=== PATIENT | female | born 1990 ===

== ENCOUNTER 2021-02-27 22:31 | Outpatient (CLI) | payer SELFPAY ==
[2021-02-27 23:22] VITALS: BP 121/73
[2021-02-27] MEDS ORDERED: TERBUTALINE 1 MG/1 ML INJ SUB-Q ONE (23:44)
[2021-02-27] MEDS ORDERED: LACTATED RINGERS 1,000 ML IV ONE (23:45)
[2021-02-28] MEDS ORDERED: LACTATED RINGERS 1,000 ML IV SCH (01:15)
--- NOTE | 2021-02-28 02:05 | Ultrasound Report ---
ULTRASOUND BIOPHYSICAL PROFILE INDICATION / CLINICAL INFORMATION: bpp. well-being COMPARISON: None available. FINDINGS: BREATHING MOVEMENT = 2 GROSS BODY MOVEMENT = 2 TONE = 2 QUALITATIVE AMNIOTIC FLUID VOLUME = 2 TOTAL BIOPHYSICAL SCORE = 02/10 AMNIOTIC FLUID INDEX (cm) = 16.6 PRESENTATION: Cephalic. HEART RATE (beats per minute): 163 IMPRESSION: 1. biophysical profile = 02/10 Signer Name: Alan Nazario MD Signed: 02/28/2021 2:00 AM Workstation Name: [id number]
== END 2021-02-28 01:50 | disposition home or self-care (01) ==
LOC: TRG 22:31 → APU 22:34 → TRG 02-28 01:50
DX: Z34.92 Encounter for supervision of normal pregnancy, unspecified, second trimester (principal); Z3A.25 25 weeks gestation of pregnancy
CPT/HCPCS: 59025; 76819; J3105; J7120

== ENCOUNTER 2021-05-12 00:44 | Outpatient (CLI) | payer OTHER ==
[2021-05-12 01:23] LABS: Bacteria,Urine 1+ /HPF (Negative); Mucus,Urine FEW /HPF
[2021-05-12 01:31] VITALS: BP 114/70
[2021-05-12 01:34] LABS: Bilirubin,Urine Negative (Negative); Color,Urine Yellow (Yellow)
[2021-05-12] MEDS ORDERED: LACTATED RINGERS 1,000 ML IV ONE (01:46)
[2021-05-12] MEDS ORDERED: LIDOCAINE-MPF (1%) 10 MG/1 ML VIAL 5 ML INFILTRATI ONE (01:49)
== END 2021-05-12 02:25 | disposition home or self-care (01) ==
LOC: TRG 00:44 → APU 00:46 → TRG 02:25
PROVIDERS: ATTEND Obstetrics & Gynecology
DX: Z34.93 Encounter for supervision of normal pregnancy, unspecified, third trimester (principal); Z3A.36 36 weeks gestation of pregnancy
CPT/HCPCS: 36415; 81001; 84112; 87086; J0696; J7120

== ENCOUNTER 2021-05-27 15:58 | Inpatient (IN) | payer SELFPAY ==
[2021-05-27] MEDS ORDERED: NALOXONE 0.4 MG/1 ML INJ IV PRN (17:03)
[2021-05-27] MEDS ORDERED: ONDANSETRON 4 MG/2 ML INJ IV PRN (17:03)
[2021-05-27] MEDS ORDERED: LOPERAMIDE 2 MG CAP PO PRN (17:03)
[2021-05-27] MEDS ORDERED: OXYTOCIN 10 UNIT/1 ML INJ IM PRN (17:03)
[2021-05-27] MEDS ORDERED: AMPICILLIN/NS 2 GM/100 ML 2 GM/100 ML BAG IV ONE (17:03)
[2021-05-27] MEDS ORDERED: CARBOPROST TROMETHAMINE 250 MCG/1 ML INJ IM PRN (17:03)
[2021-05-27] MEDS ORDERED: METHYLERGONOVINE MALEATE 0.2 MG/ML VIAL IM PRN (17:03)
[2021-05-27] MEDS ORDERED: MINERAL OIL 30 ML ORAL LIQD PO PRN (17:03)
[2021-05-27] MEDS ORDERED: ACETAMINOPHEN 325 MG TAB PO PRN (17:03)
[2021-05-27] MEDS ORDERED: BUTORPHANOL 2 MG/1 ML INJ IV PRN (17:03)
[2021-05-27] MEDS ORDERED: ePHEDrine SULFATE 50 MG/1 ML INJ IV PRN ×2 (17:03→20:46)
[2021-05-27] MEDS ORDERED: TERBUTALINE 1 MG/1 ML INJ SUB-Q PRN (17:03)
[2021-05-27] MEDS ORDERED: miSOPROStol 200 MCG TAB PR PRN (17:03)
[2021-05-27] MEDS ORDERED: LIDOCAINE (2%) 20 MG/1 ML VIAL 20 ML MDV INFILTRATI ONE (17:03)
--- NOTE | 2021-05-27 17:16 | History and Physical Report ---
History of Present Illness Date of examination: 05/27/21 Date of admission: 05/27/2021 Chief complaint: [place] [facility] [place] due to Oligohydrmnios History of present illness: Early entry to care, taking Humlin N and Humln R insulin, Metformin added during course, co-managed with [facility]. Past History Past Medical History: diabetes Past Surgical History: no surgical history Family/Genetic History: diabetes Social history: no significant social history - Obstetrical History Expected Date of Delivery: 06/13/21 Actual Gestation: 37 Week(s) 4 Day(s) : 3 Para: 1 Number of Pregnancies: 1 Spontaneous Abortions: 1 Number of Living Children: 1 #1 Infant Gender: Female year: Birthweight: 3.062 kg Method of Delivery: Vaginal Gestational age at delivery: 33 Complications: other (induction for IUGR) Medications and Allergies Allergies Allergy/AdvReac Type Severity Reaction Status Date / Time No Known Allergies Allergy Unverified 05/05/16 08:08 Home Medications Medication Instructions Recorded Confirmed Last Taken Type HYDROcodone/APAP 5-325 [[place] 1 each PO Q6HR PRN #7 tablet 05/05/16 Unknown Rx 5/325] Active Meds: Active Medications Acetaminophen (Acetaminophen 325 Mg Tab) 650 mg PO Q4H PRN PRN Reason: Pain, Mild (1-3) Butorphanol Tartrate (Butorphanol 2 Mg/1 Ml Inj) 2 mg IV Q2H PRN PRN Reason: Pain , Severe (7-10) Carboprost Tromethamine (Carboprost Tromethamine 250 Mcg/1 Ml Inj) 250 mcg IM ONCE PRN PRN Reason: Uterine Bleeding Ephedrine Sulfate (Ephedrine Sulfate 50 Mg/1 Ml Inj) 10 mg IV Q2M PRN PRN Reason: Hypotension Oxytocin/Sodium Chloride (Pitocin/Ns 30 Unit/500ml) 30 units in 500 mls @ 2 mls/hr IV TITR MARIANNA; Protocol Lactated Ringer's (Lactated Ringers) 1,000 mls @ 125 mls/hr IV DIRECT MARIANNA Oxytocin/Sodium Chloride (Pitocin/Ns 30 Unit/500ml) 30 units in 500 mls @ 40 mls/hr IV TITR MARIANNA; Protocol Ampicillin Sodium (Ampicillin/Ns 1 Gm/50 Ml) 1 gm in 50 mls @ 100 mls/hr IV Q4H MARIANNA; Protocol Ampicillin Sodium (Ampicillin/Ns 2 Gm/100 Ml) 2 gm in 100 mls @ 100 mls/hr IV ONCE ONE; Protocol Stop: 05/27/21 18:02 Lidocaine (Lidocaine (2%) 20 Mg/1 Ml Vial 20 Ml Mdv) 20 ml INFILTRATI ONCE ONE Stop: 05/27/21 17:04 Loperamide HCl (Loperamide 2 Mg Cap) 2 mg PO ONCE PRN PRN Reason: give with Hemabate Methylergonovine Maleate (Methylergonovine Maleate 0.2 Mg/Ml Vial) 0.2 mg IM ONCE PRN PRN Reason: Uterine Bleeding Mineral Oil (Mineral Oil 30 Ml Oral Liqd) 30 ml PO QHS PRN PRN Reason: Constipation Misoprostol (Misoprostol 200 Mcg Tab) 800 mcg OR ONCE PRN PRN Reason: Uterine Bleeding Naloxone HCl (Naloxone 0.4 Mg/1 Ml Inj) 0.1 mg IV Q2MIN PRN PRN Reason: Res Rate </= 8 or 02 SAT < 92% Ondansetron HCl (Ondansetron 4 Mg/2 Ml Inj) 4 mg IV Q8H PRN PRN Reason: Nausea And Vomiting Oxytocin (Oxytocin 10 Unit/1 Ml Inj) 10 unit IM ONCE PRN PRN Reason: Uterine Bleeding Terbutaline Sulfate (Terbutaline 1 Mg/1 Ml Inj) 0.25 mg SUB-Q ONCE PRN PRN Reason: Hyperstimulation/Hypertonicity Review of Systems All systems: negative - Vital Signs Vital signs: Vital Signs Pulse BP 73 123/67 05/27/21 16:52 05/27/21 16:52 Temp Pulse Resp BP Pulse Ox 69 123/67 97 05/27/21 17:10 05/27/21 16:52 05/27/21 17:10 - Physical Exam Breasts: Positive: normal Cardiovascular: Regular rate Lungs: Positive: Clear to auscultation, Normal air movement Abdomen: Positive: normal appearance, soft, normal bowel sounds Genitourinary (Female): Positive: normal external genitalia, normal perenium Vagina: Positive: normal moisture Uterus: Positive: enlarged Anus/Rectum: Positive: normal perianal skin - Obstetrical FHR: category 1 Uterine Contraction Monitor Mode: External Cervical Dilatation: 1 Cervical Effacement Percentage: 60 station: -3 Uterine Contraction Pattern: Absent Uterine Tone Measurement Phase: Resting Results All other labs normal. Assessment and Plan A: IUP @ 37 4/7 Weeks Category I Tracing PreGestational Diabetes Maternal Obesity Oligohydramnios GBS Unknown P: Admit to L&D Per Routine Orders Accucheck q 2 hours Insulin Sliding Scale GBS Prophylaxis Cook's Cervical Ripening Balloon Low Dose Pitocin Dr. Ballesteros Consulted
[2021-05-27] MEDS ORDERED: OXYTOCIN DRIP 30 UNITS/500 ML BAG IV SCH ×2 (18:00)
[2021-05-27] MEDS: LACTATED RINGERS 1,000 ML IV SCH ×3 (18:00→21:59)
[2021-05-27 18:34] LABS: Hematocrit 32.8 % (30.3-42.9); Hemoglobin 10.5 gm/dl (10.1-14.3); Mean Corpuscular HGB Conc 32 % (30-34); Mean Corpuscular Volume 88 fl (79-97); Platelet Count 276 K/mm3 (140-440); Red Blood Count 3.71 M/mm3 (3.65-5.03); Red Cell Distribution Width 19.1 % (13.2-15.2)
[2021-05-27] MEDS ORDERED: NALOXONE 2 MG/2 ML INJ IV PRN (20:46)
--- NOTE | 2021-05-27 20:46 | Anesthesia Consultation ---
Anesthesia Consult and Med Hx Date of service: 05/27/21 - Airway Anesthetic Teeth Evaluation: Good ROM Head & Neck: Adequate Mental/Hyoid Distance: Adequate Mallampati Class: Class II Intubation Access Assessment: Probably Good - Pulmonary Exam CTA: Yes - Cardiac Exam Cardiac Exam: RRR - Pre-Operative Health Status ASA Pre-Surgery Classification: ASA3 Proposed Anesthetic Plan: Epidural - Pulmonary Hx Asthma: No COPD: No Hx Pneumonia: No - Cardiovascular System Hx Hypertension: No - Central Nervous System Hx Seizures: No Hx Psychiatric Problems: No - Endocrine Hx Renal Disease: No Hx End Stage Renal Disease: No Hx Insulin Dependent Diabetes: Yes Hx Hypothyroidism: No Hx Hyperthyroidism: No - Hematic Hx Anemia: Yes Hx Sickle Cell Disease: No - Other Systems Hx Alcohol Use: No Hx Obesity: Yes
--- NOTE | 2021-05-27 21:17 | Progress Note ---
Labor Epidural - Labor Epidural Start Time: 21:08 Stop Time: 21:10 Performed by:: EDWARD AUGUSTE Procedure: Patient is requesting epidural for labor pain. H&P, and labs reviewed. Procedure explained, questions answered, consent obtained. Patient in sitting position with blood pressure cuff and pulse ox on and working. Timeout performed immediately before start of procedure. Sterile chlorahexadine 0.5% prep/drape. 3 mL 1% lidocaine skin wheal at L[3]-L[4]. 17-gauge tuohy epidural needle advanced to [id number] with saline at [7] cm. 25-gauge spinal needle advanced until clear, free-flowing CSF. Intrathecal dexmedetomidine [5] mcg administered and needle removed. Epidural catheter advanced to [12] cm, negative aspiration for blood and csf, negative test dose 3 ml 1.5% lidocaine with epinephrine. Sterile sponge and tegaderm applied, followed by tape reinforcement. Patient tolerated procedure well.
[2021-05-27] MEDS: fentaNYL-BUPIV 2 MCG/ML-0.125% 200 MCG/100 ML BAG EPIDURAL SCH (21:51)
[2021-05-27] MEDS ORDERED: AMPICILLIN/NS 1 GM/50 ML 1 GM/50 ML BAG IV SCH (22:00)
[2021-05-27] MEDS: INSULIN REGULAR, HUMAN 100 UNITS/1 ML SUB-Q SCH (23:08)
[2021-05-28] MEDS: LACTATED RINGERS 1,000 ML IV SCH ×2 (05:47→13:31)
[2021-05-28] MEDS: fentaNYL-BUPIV 2 MCG/ML-0.125% 200 MCG/100 ML BAG EPIDURAL SCH (05:47)
--- NOTE | 2021-05-28 09:51 | Progress Note ---
Assessment and Plan A: IUP@ 37.5 wks IDDM GBS neg P: Continue routine labor orders AROM Continue Pitocin Accuchecks q2 @ 6cm Anticipate Subjective - Subjective Date of service: 05/28/21 Principal diagnosis: IUP@37.5 Patient reports: movement normal, contractions Objective - Vital Signs Vital Signs: Vital Signs - 12hr 05/27/21 05/27/21 05/27/21 21:47 21:50 21:52 Temperature Pulse Rate 75 69 72 Respiratory Rate Blood Pressure 112/58 O2 Sat by Pulse 99 97 Oximetry O2 Sat by Pulse Oximetry [ Throughout] 05/27/21 05/27/21 05/27/21 21:56 21:57 21:58 Temperature Pulse Rate 71 71 82 Respiratory Rate Blood Pressure 125/76 O2 Sat by Pulse 99 92 Oximetry O2 Sat by Pulse Oximetry [ Throughout] 05/27/21 05/27/21 05/27/21 21:59 22:02 22:07 Temperature Pulse Rate 64 90 71 Respiratory Rate Blood Pressure 115/62 O2 Sat by Pulse 99 100 Oximetry O2 Sat by Pulse Oximetry [ Throughout] 05/27/21 05/27/21 05/27/21 22:12 22:14 22:17 Temperature Pulse Rate 67 70 74 Respiratory Rate Blood Pressure 112/67 O2 Sat by Pulse 99 99 Oximetry O2 Sat by Pulse Oximetry [ Throughout] 05/27/21 05/27/21 05/27/21 22:22 22:27 22:30 Temperature Pulse Rate 67 69 63 Respiratory Rate Blood Pressure 122/64 O2 Sat by Pulse 99 99 Oximetry O2 Sat by Pulse Oximetry [ Throughout] 05/27/21 05/27/21 05/27/21 22:32 22:37 22:42 Temperature Pulse Rate 70 74 67 Respiratory Rate Blood Pressure O2 Sat by Pulse 98 98 99 Oximetry O2 Sat by Pulse Oximetry [ Throughout] 05/27/21 05/27/21 05/27/21 22:45 22:47 22:52 Temperature Pulse Rate 65 76 73 Respiratory Rate Blood Pressure 119/66 O2 Sat by Pulse 98 98 Oximetry O2 Sat by Pulse Oximetry [ Throughout] 05/27/21 05/27/21 05/27/21 22:57 23:00 23:02 Temperature Pulse Rate 61 66 59 L Respiratory Rate Blood Pressure 104/61 O2 Sat by Pulse 97 97 Oximetry O2 Sat by Pulse Oximetry [ Throughout] 05/27/21 05/27/21 05/27/21 23:07 23:12 23:14 Temperature Pulse Rate 62 60 65 Respiratory Rate Blood Pressure 107/63 O2 Sat by Pulse 97 97 Oximetry O2 Sat by Pulse Oximetry [ Throughout] 05/27/21 05/27/21 05/27/21 23:17 23:22 23:27 Temperature Pulse Rate 60 63 59 L Respiratory Rate Blood Pressure O2 Sat by Pulse 97 96 96 Oximetry O2 Sat by Pulse Oximetry [ Throughout] 05/27/21 05/27/21 05/27/21 23:29 23:30 23:32 Temperature Pulse Rate 63 57 L 74 Respiratory Rate Blood Pressure 125/60 O2 Sat by Pulse 94 95 Oximetry O2 Sat by Pulse Oximetry [ Throughout] 05/27/21 05/27/21 05/27/21 23:34 23:37 23:41 Temperature Pulse Rate 64 60 68 Respiratory Rate Blood Pressure O2 Sat by Pulse 94 95 94 Oximetry O2 Sat by Pulse Oximetry [ Throughout] 05/27/21 05/27/21 05/27/21 23:42 23:45 23:47 Temperature Pulse Rate 75 58 L 61 Respiratory Rate Blood Pressure 124/65 O2 Sat by Pulse 95 95 Oximetry O2 Sat by Pulse Oximetry [ Throughout] 05/27/21 05/27/21 05/27/21 23:48 23:52 23:54 Temperature Pulse Rate 64 66 64 Respiratory Rate Blood Pressure O2 Sat by Pulse 94 96 94 Oximetry O2 Sat by Pulse Oximetry [ Throughout] 05/27/21 05/27/21 05/28/21 23:55 23:57 00:00 Temperature 98.5 F Pulse Rate 68 70 Respiratory 18 Rate Blood Pressure 113/66 O2 Sat by Pulse 97 96 Oximetry O2 Sat by Pulse Oximetry [ Throughout] 05/28/21 05/28/21 05/28/21 00:02 00:07 00:12 Temperature Pulse Rate 72 68 75 Respiratory Rate Blood Pressure O2 Sat by Pulse 98 97 98 Oximetry O2 Sat by Pulse Oximetry [ Throughout] 05/28/21 05/28/21 05/28/21 00:15 00:17 00:22 Temperature Pulse Rate 62 64 66 Respiratory Rate Blood Pressure 138/76 O2 Sat by Pulse 99 99 Oximetry O2 Sat by Pulse Oximetry [ Throughout] 05/28/21 05/28/21 05/28/21 00:27 00:30 00:32 Temperature Pulse Rate 62 67 63 Respiratory Rate Blood Pressure 137/78 O2 Sat by Pulse 99 99 Oximetry O2 Sat by Pulse Oximetry [ Throughout] 05/28/21 05/28/21 05/28/21 00:37 00:42 00:46 Temperature Pulse Rate 62 62 60 Respiratory Rate Blood Pressure 148/79 O2 Sat by Pulse 98 98 Oximetry O2 Sat by Pulse Oximetry [ Throughout] 05/28/21 05/28/21 05/28/21 00:47 00:52 00:57 Temperature Pulse Rate 61 67 86 Respiratory Rate Blood Pressure O2 Sat by Pulse 98 97 99 Oximetry O2 Sat by Pulse Oximetry [ Throughout] 05/28/21 05/28/21 05/28/21 01:00 01:02 01:07 Temperature Pulse Rate 61 60 68 Respiratory Rate Blood Pressure 132/76 O2 Sat by Pulse 99 98 Oximetry O2 Sat by Pulse Oximetry [ Throughout] 05/28/21 05/28/21 05/28/21 01:12 01:15 01:17 Temperature Pulse Rate 63 72 60 Respiratory Rate Blood Pressure 106/70 O2 Sat by Pulse 95 96 Oximetry O2 Sat by Pulse Oximetry [ Throughout] 05/28/21 05/28/21 05/28/21 01:22 01:27 01:29 Temperature Pulse Rate 81 63 67 Respiratory Rate Blood Pressure 108/68 O2 Sat by Pulse 97 99 Oximetry O2 Sat by Pulse Oximetry [ Throughout] 05/28/21 05/28/21 05/28/21 01:32 01:37 01:42 Temperature Pulse Rate 66 62 62 Respiratory Rate Blood Pressure O2 Sat by Pulse 98 95 96 Oximetry O2 Sat by Pulse Oximetry [ Throughout] 05/28/21 05/28/21 05/28/21 01:46 01:47 01:52 Temperature Pulse Rate 58 L 66 61 Respiratory Rate Blood Pressure 130/71 O2 Sat by Pulse 96 97 Oximetry O2 Sat by Pulse Oximetry [ Throughout] 05/28/21 05/28/21 05/28/21 01:57 01:58 02:00 Temperature Pulse Rate 63 63 64 Respiratory Rate Blood Pressure 101/62 O2 Sat by Pulse 94 94 Oximetry O2 Sat by Pulse Oximetry [ Throughout] 05/28/21 05/28/21 05/28/21 02:02 02:06 02:07 Temperature Pulse Rate 59 L 75 62 Respiratory Rate Blood Pressure O2 Sat by Pulse 96 94 96 Oximetry O2 Sat by Pulse Oximetry [ Throughout] 05/28/21 05/28/21 05/28/21 02:12 02:16 02:17 Temperature Pulse Rate 61 57 L 86 Respiratory Rate Blood Pressure 123/70 O2 Sat by Pulse 94 95 Oximetry O2 Sat by Pulse Oximetry [ Throughout] 05/28/21 05/28/21 05/28/21 02:18 02:22 02:27 Temperature Pulse Rate 74 76 61 Respiratory Rate Blood Pressure O2 Sat by Pulse 94 95 93 Oximetry O2 Sat by Pulse Oximetry [ Throughout] 05/28/21 05/28/21 05/28/21 02:30 02:32 02:33 Temperature Pulse Rate 58 L 79 77 Respiratory Rate Blood Pressure 128/67 O2 Sat by Pulse 94 94 Oximetry O2 Sat by Pulse Oximetry [ Throughout] 05/28/21 05/28/21 05/28/21 02:37 02:38 02:42 Temperature Pulse Rate 81 66 79 Respiratory Rate Blood Pressure O2 Sat by Pulse 96 93 95 Oximetry O2 Sat by Pulse Oximetry [ Throughout] 05/28/21 05/28/21 05/28/21 02:44 02:45 02:47 Temperature Pulse Rate 58 L 54 L 62 Respiratory Rate Blood Pressure 120/66 O2 Sat by Pulse 94 96 Oximetry O2 Sat by Pulse Oximetry [ Throughout] 05/28/21 05/28/21 05/28/21 02:52 02:57 03:00 Temperature Pulse Rate 60 69 70 Respiratory Rate Blood Pressure 114/73 O2 Sat by Pulse 96 96 Oximetry O2 Sat by Pulse Oximetry [ Throughout] 05/28/21 05/28/21 05/28/21 03:02 03:07 03:12 Temperature Pulse Rate 67 70 78 Respiratory Rate Blood Pressure O2 Sat by Pulse 97 99 98 Oximetry O2 Sat by Pulse Oximetry [ Throughout] 05/28/21 05/28/21 05/28/21 03:15 03:17 03:22 Temperature Pulse Rate 67 65 65 Respiratory Rate Blood Pressure 112/62 O2 Sat by Pulse 98 97 Oximetry O2 Sat by Pulse Oximetry [ Throughout] 05/28/21 05/28/21 05/28/21 03:27 03:30 03:32 Temperature Pulse Rate 78 56 L 64 Respiratory Rate Blood Pressure 107/58 O2 Sat by Pulse 96 97 Oximetry O2 Sat by Pulse Oximetry [ Throughout] 05/28/21 05/28/21 05/28/21 03:37 03:42 03:44 Temperature Pulse Rate 66 76 61 Respiratory Rate Blood Pressure 115/61 O2 Sat by Pulse 97 97 Oximetry O2 Sat by Pulse Oximetry [ Throughout] 05/28/21 05/28/21 05/28/21 03:45 03:47 03:51 Temperature Pulse Rate 60 68 64 Respiratory Rate Blood Pressure O2 Sat by Pulse 94 97 94 Oximetry O2 Sat by Pulse Oximetry [ Throughout] 05/28/21 05/28/21 05/28/21 03:52 03:57 03:58 Temperature 97.8 F Pulse Rate 61 64 Respiratory 20 Rate Blood Pressure O2 Sat by Pulse 97 98 97 Oximetry O2 Sat by Pulse Oximetry [ Throughout] 05/28/21 05/28/21 05/28/21 04:00 04:02 04:07 Temperature Pulse Rate 74 64 61 Respiratory Rate Blood Pressure 91/53 O2 Sat by Pulse 97 97 Oximetry O2 Sat by Pulse Oximetry [ Throughout] 05/28/21 05/28/21 05/28/21 04:12 04:14 04:17 Temperature Pulse Rate 57 L 62 70 Respiratory Rate Blood Pressure 89/51 O2 Sat by Pulse 97 97 Oximetry O2 Sat by Pulse Oximetry [ Throughout] 05/28/21 05/28/21 05/28/21 04:22 04:27 04:30 Temperature Pulse Rate 65 63 62 Respiratory Rate Blood Pressure 111/58 O2 Sat by Pulse 97 96 Oximetry O2 Sat by Pulse Oximetry [ Throughout] 05/28/21 05/28/21 05/28/21 04:32 04:37 04:42 Temperature Pulse Rate 63 63 62 Respiratory Rate Blood Pressure O2 Sat by Pulse 97 97 96 Oximetry O2 Sat by Pulse Oximetry [ Throughout] 05/28/21 05/28/21 05/28/21 04:45 04:47 04:52 Temperature Pulse Rate 63 58 L 71 Respiratory Rate Blood Pressure 85/53 O2 Sat by Pulse 96 96 Oximetry O2 Sat by Pulse Oximetry [ Throughout] 05/28/21 05/28/21 05/28/21 04:57 05:00 05:02 Temperature Pulse Rate 66 61 63 Respiratory Rate Blood Pressure 107/53 O2 Sat by Pulse 96 98 Oximetry O2 Sat by Pulse Oximetry [ Throughout] 05/28/21 05/28/21 05/28/21 05:04 05:07 05:12 Temperature 98.1 F Pulse Rate 86 67 70 Respiratory Rate Blood Pressure O2 Sat by Pulse 91 98 97 Oximetry O2 Sat by Pulse Oximetry [ Throughout] 05/28/21 05/28/21 05/28/21 05:15 05:17 05:22 Temperature Pulse Rate 67 68 69 Respiratory Rate Blood Pressure 135/78 O2 Sat by Pulse 98 98 Oximetry O2 Sat by Pulse Oximetry [ Throughout] 05/28/21 05/28/21 05/28/21 05:27 05:30 05:32 Temperature Pulse Rate 64 66 64 Respiratory Rate Blood Pressure 145/75 O2 Sat by Pulse 99 99 Oximetry O2 Sat by Pulse Oximetry [ Throughout] 05/28/21 05/28/21 05/28/21 05:37 05:42 05:46 Temperature Pulse Rate 69 67 65 Respiratory Rate Blood Pressure 135/77 O2 Sat by Pulse 99 95 Oximetry O2 Sat by Pulse Oximetry [ Throughout] 05/28/21 05/28/21 05/28/21 05:47 05:52 05:57 Temperature Pulse Rate 67 68 72 Respiratory Rate Blood Pressure O2 Sat by Pulse 98 98 98 Oximetry O2 Sat by Pulse Oximetry [ Throughout] 05/28/21 05/28/21 05/28/21 06:00 06:02 06:07 Temperature Pulse Rate 73 67 70 Respiratory Rate Blood Pressure 127/82 O2 Sat by Pulse 98 99 Oximetry O2 Sat by Pulse Oximetry [ Throughout] 05/28/21 05/28/21 05/28/21 06:12 06:15 06:17 Temperature Pulse Rate 75 67 76 Respiratory Rate Blood Pressure 131/76 O2 Sat by Pulse 96 97 Oximetry O2 Sat by Pulse Oximetry [ Throughout] 05/28/21 05/28/21 05/28/21 06:22 06:27 06:30 Temperature Pulse Rate 66 71 63 Respiratory Rate Blood Pressure 126/73 O2 Sat by Pulse 97 96 Oximetry O2 Sat by Pulse Oximetry [ Throughout] 05/28/21 05/28/21 05/28/21 06:32 06:34 06:37 Temperature Pulse Rate 70 71 67 Respiratory Rate Blood Pressure O2 Sat by Pulse 95 94 96 Oximetry O2 Sat by Pulse Oximetry [ Throughout] 05/28/21 05/28/21 05/28/21 06:42 06:45 06:47 Temperature Pulse Rate 67 69 66 Respiratory Rate Blood Pressure 115/69 O2 Sat by Pulse 96 95 Oximetry O2 Sat by Pulse Oximetry [ Throughout] 05/28/21 05/28/21 05/28/21 06:52 06:57 07:00 Temperature Pulse Rate 64 65 62 Respiratory Rate Blood Pressure 132/70 O2 Sat by Pulse 96 96 Oximetry O2 Sat by Pulse Oximetry [ Throughout] 05/28/21 05/28/21 05/28/21 07:02 07:07 07:09 Temperature 97.9 F Pulse Rate 65 66 Respiratory Rate Blood Pressure O2 Sat by Pulse 96 95 Oximetry O2 Sat by Pulse Oximetry [ Throughout] 05/28/21 05/28/21 05/28/21 07:10 07:12 07:15 Temperature Pulse Rate 79 70 Respiratory Rate Blood Pressure 136/71 O2 Sat by Pulse 97 Oximetry O2 Sat by Pulse 97 Oximetry [ Throughout] 05/28/21 05/28/21 05/28/21 07:17 07:22 07:26 Temperature Pulse Rate 77 77 70 Respiratory Rate Blood Pressure O2 Sat by Pulse 96 95 93 Oximetry O2 Sat by Pulse Oximetry [ Throughout] 05/28/21 05/28/21 05/28/21 07:27 07:30 07:32 Temperature Pulse Rate 67 67 68 Respiratory Rate Blood Pressure 129/70 O2 Sat by Pulse 93 95 Oximetry O2 Sat by Pulse Oximetry [ Throughout] 05/28/21 05/28/21 05/28/21 07:34 07:37 07:40 Temperature Pulse Rate 70 69 67 Respiratory Rate Blood Pressure O2 Sat by Pulse 94 95 94 Oximetry O2 Sat by Pulse Oximetry [ Throughout] 05/28/21 05/28/21 05/28/21 07:42 07:44 07:47 Temperature Pulse Rate 65 64 73 Respiratory Rate Blood Pressure 120/67 O2 Sat by Pulse 95 93 Oximetry O2 Sat by Pulse Oximetry [ Throughout] 05/28/21 05/28/21 05/28/21 07:49 07:52 07:56 Temperature Pulse Rate 65 85 70 Respiratory Rate Blood Pressure O2 Sat by Pulse 93 95 94 Oximetry O2 Sat by Pulse Oximetry [ Throughout] 05/28/21 05/28/21 05/28/21 07:57 07:59 08:02 Temperature Pulse Rate 68 64 70 Respiratory Rate Blood Pressure 119/65 O2 Sat by Pulse 94 94 Oximetry O2 Sat by Pulse Oximetry [ Throughout] 05/28/21 05/28/21 05/28/21 08:04 08:07 08:12 Temperature Pulse Rate 68 68 72 Respiratory Rate Blood Pressure O2 Sat by Pulse 94 92 93 Oximetry O2 Sat by Pulse Oximetry [ Throughout] 05/28/21 05/28/21 05/28/21 08:15 08:17 08:20 Temperature Pulse Rate 67 65 62 Respiratory Rate Blood Pressure 143/67 O2 Sat by Pulse 93 92 Oximetry O2 Sat by Pulse Oximetry [ Throughout] 05/28/21 05/28/21 05/28/21 08:22 08:27 08:30 Temperature Pulse Rate 71 63 69 Respiratory Rate Blood Pressure 138/68 O2 Sat by Pulse 95 94 Oximetry O2 Sat by Pulse Oximetry [ Throughout] 05/28/21 05/28/21 05/28/21 08:32 08:34 08:37 Temperature Pulse Rate 79 69 78 Respiratory Rate Blood Pressure O2 Sat by Pulse 92 94 94 Oximetry O2 Sat by Pulse Oximetry [ Throughout] 05/28/21 05/28/21 05/28/21 08:40 08:42 08:45 Temperature Pulse Rate 70 73 70 Respiratory Rate Blood Pressure 140/73 O2 Sat by Pulse 94 92 93 Oximetry O2 Sat by Pulse Oximetry [ Throughout] 05/28/21 05/28/21 05/28/21 08:47 08:51 08:52 Temperature Pulse Rate 71 69 74 Respiratory Rate Blood Pressure O2 Sat by Pulse 94 93 96 Oximetry O2 Sat by Pulse Oximetry [ Throughout] 05/28/21 05/28/21 05/28/21 08:57 09:00 09:02 Temperature Pulse Rate 75 67 74 Respiratory Rate Blood Pressure 138/73 O2 Sat by Pulse 98 96 Oximetry O2 Sat by Pulse Oximetry [ Throughout] 05/28/21 05/28/21 05/28/21 09:07 09:12 09:16 Temperature Pulse Rate 73 76 62 Respiratory Rate Blood Pressure 127/61 O2 Sat by Pulse 96 96 Oximetry O2 Sat by Pulse Oximetry [ Throughout] 05/28/21 05/28/21 05/28/21 09:17 09:19 09:22 Temperature Pulse Rate 83 72 66 Respiratory Rate Blood Pressure O2 Sat by Pulse 96 94 95 Oximetry O2 Sat by Pulse Oximetry [ Throughout] 11/05/28/21 05/28/21 09:25 09:27 09:31 Temperature Pulse Rate 86 71 63 Respiratory Rate Blood Pressure 124/63 O2 Sat by Pulse 94 97 Oximetry O2 Sat by Pulse Oximetry [ Throughout] 05/28/21 05/28/21 05/28/21 09:32 09:37 09:42 Temperature Pulse Rate 69 67 72 Respiratory Rate Blood Pressure O2 Sat by Pulse 96 95 96 Oximetry O2 Sat by Pulse Oximetry [ Throughout] 05/28/21 09:43 Temperature Pulse Rate 74 Respiratory Rate Blood Pressure O2 Sat by Pulse 94 Oximetry O2 Sat by Pulse Oximetry [ Throughout] - Exam Breasts: normal Abdomen: Present: normal appearance, soft, normal bowel sounds Vulva: both: normal Uterus: Present: normal, other (GRAVID) FHR: auscultation normal, category 1 Uterine Contraction Monitor Mode: External Uterine Contraction Pattern: Regular Uterine Tone Measurement Phase: Resting Uterine Contraction Intensity: Moderate Extremities: normal - Labs Labs: Abnormal Labs 05/27/21 05/27/21 05/28/21 23:08 Unknown 09:04 RDW 19.1 H POC Glucose 123 H 108 H Laboratory Results - last 24 hr 05/27/21 05/27/21 05/27/21 17:14 23:08 Unknown WBC 8.7 RBC 3.71 Hgb 10.5 Hct 32.8 MCV 88 MCH 28 MCHC 32 RDW 19.1 H Plt Count 276 POC Glucose 123 H Blood Type O POSITIVE Antibody Screen Negative 05/28/21 05/28/21 09:04 09:05 WBC RBC Hgb Hct MCV MCH MCHC RDW Plt Count POC Glucose 108 H 102 Blood Type Antibody Screen
--- NOTE | 2021-05-28 12:29 | Event Note ---
Date: 05/28/21 AROM with alarming bloody return with small dark clots. SVE 5/90%/-2. FHT 154 with mod francheska CAT I FHT. UC irreg. Pitocin @ 14mu per pump. IUPC was placed and an us was ordered to r/o abruption. Pitocin was cut in half until results of us. Dr John was consulted and agrees with plan.
--- NOTE | 2021-05-28 13:15 | Ultrasound Report ---
ULTRASOUND OBSTETRIC LIMITED INDICATION / CLINICAL INFORMATION: PLACENTA CHECK, BLOOD WHEN RUPTURED. TECHNIQUE: Transabdominal ultrasound imaging. COMPARISON: None available. FINDINGS: HEART RATE (beats per minute): 126 AMNIOTIC FLUID INDEX (cm) = GLADYS was not measured but oligohydramnios is suspected PRESENTATION: Cephalic. ADDITIONAL FINDINGS: The placenta is fundal, left lateral, grade 1. No evidence for abruption. IMPRESSION: Oligohydramnios is suspected. The placenta is unremarkable. Signer Name: Kameron Del Rosario Jr, MD Signed: 05/28/2021 1:10 PM Workstation Name: [id number]
--- NOTE | 2021-05-28 18:43 | Event Note ---
Date: 05/28/21 (late entry for 1 pm) [facility] [place] CAT 1 FHT. No further problems noted.
--- NOTE | 2021-05-28 18:57 | Progress Note ---
Assessment and Plan A: IUP@ 37.5 wks IDDM [place]lig[place] GBS neg CAT II FHT (called by nurse to assess Pt's FHT) p: FHT resuscitative measures IFM/IUPC placed IV bolus, Pitocin off Continue Accuchecks q2 Dr John was notified Will continue monitoring Anticipate Subjective - Subjective Date of service: 05/28/21 Principal diagnosis: IUP@37.5 Patient reports: movement normal, contractions Objective - Vital Signs Vital Signs: Vital Signs - 12hr 05/28/21 05/28/21 05/28/21 06:45 06:47 06:52 Temperature Pulse Rate 69 66 64 Respiratory Rate Blood Pressure 115/69 O2 Sat by Pulse 95 96 Oximetry O2 Sat by Pulse Oximetry [ Throughout] 05/28/21 05/28/21 05/28/21 06:57 07:00 07:02 Temperature Pulse Rate 65 62 65 Respiratory Rate Blood Pressure 132/70 O2 Sat by Pulse 96 96 Oximetry O2 Sat by Pulse Oximetry [ Throughout] 05/28/21 05/28/21 05/28/21 07:07 07:09 07:10 Temperature 97.9 F Pulse Rate 66 Respiratory Rate Blood Pressure O2 Sat by Pulse 95 Oximetry O2 Sat by Pulse 97 Oximetry [ Throughout] 05/28/21 05/28/21 05/28/21 07:12 07:15 07:17 Temperature Pulse Rate 79 70 77 Respiratory Rate Blood Pressure 136/71 O2 Sat by Pulse 97 96 Oximetry O2 Sat by Pulse Oximetry [ Throughout] 05/28/21 05/28/21 05/28/21 07:22 07:26 07:27 Temperature Pulse Rate 77 70 67 Respiratory Rate Blood Pressure O2 Sat by Pulse 95 93 93 Oximetry O2 Sat by Pulse Oximetry [ Throughout] 05/28/21 05/28/21 05/28/21 07:30 07:32 07:34 Temperature Pulse Rate 67 68 70 Respiratory Rate Blood Pressure 129/70 O2 Sat by Pulse 95 94 Oximetry O2 Sat by Pulse Oximetry [ Throughout] 05/28/21 05/28/21 05/28/21 07:37 07:40 07:42 Temperature Pulse Rate 69 67 65 Respiratory Rate Blood Pressure O2 Sat by Pulse 95 94 95 Oximetry O2 Sat by Pulse Oximetry [ Throughout] 05/28/21 05/28/21 05/28/21 07:44 07:47 07:49 Temperature Pulse Rate 64 73 65 Respiratory Rate Blood Pressure 120/67 O2 Sat by Pulse 93 93 Oximetry O2 Sat by Pulse Oximetry [ Throughout] 05/28/21 05/28/21 05/28/21 07:52 07:56 07:57 Temperature Pulse Rate 85 70 68 Respiratory Rate Blood Pressure O2 Sat by Pulse 95 94 94 Oximetry O2 Sat by Pulse Oximetry [ Throughout] 05/28/21 05/28/21 05/28/21 07:59 08:02 08:04 Temperature Pulse Rate 64 70 68 Respiratory Rate Blood Pressure 119/65 O2 Sat by Pulse 94 94 Oximetry O2 Sat by Pulse Oximetry [ Throughout] 05/28/21 05/28/21 05/28/21 08:07 08:12 08:15 Temperature Pulse Rate 68 72 67 Respiratory Rate Blood Pressure 143/67 O2 Sat by Pulse 92 93 Oximetry O2 Sat by Pulse Oximetry [ Throughout] 05/28/21 05/28/21 05/28/21 08:17 08:20 08:22 Temperature Pulse Rate 65 62 71 Respiratory Rate Blood Pressure O2 Sat by Pulse 93 92 95 Oximetry O2 Sat by Pulse Oximetry [ Throughout] 05/28/21 05/28/21 05/28/21 08:27 08:30 08:32 Temperature Pulse Rate 63 69 79 Respiratory Rate Blood Pressure 138/68 O2 Sat by Pulse 94 92 Oximetry O2 Sat by Pulse Oximetry [ Throughout] 05/28/21 05/28/21 05/28/21 08:34 08:37 08:40 Temperature Pulse Rate 69 78 70 Respiratory Rate Blood Pressure O2 Sat by Pulse 94 94 94 Oximetry O2 Sat by Pulse Oximetry [ Throughout] 05/28/21 05/28/21 05/28/21 08:42 08:45 08:47 Temperature Pulse Rate 73 70 71 Respiratory Rate Blood Pressure 140/73 O2 Sat by Pulse 92 93 94 Oximetry O2 Sat by Pulse Oximetry [ Throughout] 05/28/21 05/28/21 05/28/21 08:51 08:52 08:57 Temperature Pulse Rate 69 74 75 Respiratory Rate Blood Pressure O2 Sat by Pulse 93 96 98 Oximetry O2 Sat by Pulse Oximetry [ Throughout] 05/28/21 05/28/21 05/28/21 09:00 09:02 09:07 Temperature Pulse Rate 67 74 73 Respiratory Rate Blood Pressure 138/73 O2 Sat by Pulse 96 96 Oximetry O2 Sat by Pulse Oximetry [ Throughout] 05/28/21 05/28/21 05/28/21 09:12 09:16 09:17 Temperature Pulse Rate 76 62 83 Respiratory Rate Blood Pressure 127/61 O2 Sat by Pulse 96 96 Oximetry O2 Sat by Pulse Oximetry [ Throughout] 05/28/21 05/28/21 05/28/21 09:19 09:22 09:25 Temperature Pulse Rate 72 66 86 Respiratory Rate Blood Pressure O2 Sat by Pulse 94 95 94 Oximetry O2 Sat by Pulse Oximetry [ Throughout] 05/28/21 05/28/21 05/28/21 09:27 09:31 09:32 Temperature Pulse Rate 71 63 69 Respiratory Rate Blood Pressure 124/63 O2 Sat by Pulse 97 96 Oximetry O2 Sat by Pulse Oximetry [ Throughout] 05/28/21 05/28/21 05/28/21 09:37 09:42 09:43 Temperature Pulse Rate 67 72 74 Respiratory Rate Blood Pressure O2 Sat by Pulse 95 96 94 Oximetry O2 Sat by Pulse Oximetry [ Throughout] 05/28/21 05/28/21 05/28/21 09:45 09:47 09:52 Temperature Pulse Rate 68 68 72 Respiratory Rate Blood Pressure 130/67 O2 Sat by Pulse 96 97 Oximetry O2 Sat by Pulse Oximetry [ Throughout] 05/28/21 05/28/21 05/28/21 09:57 10:00 10:02 Temperature Pulse Rate 75 69 73 Respiratory Rate Blood Pressure 126/73 O2 Sat by Pulse 98 99 Oximetry O2 Sat by Pulse Oximetry [ Throughout] 05/28/21 05/28/21 05/28/21 10:07 10:12 10:16 Temperature Pulse Rate 67 67 67 Respiratory Rate Blood Pressure 133/64 O2 Sat by Pulse 99 98 Oximetry O2 Sat by Pulse Oximetry [ Throughout] 05/28/21 05/28/21 05/28/21 10:17 10:22 10:27 Temperature Pulse Rate 73 70 69 Respiratory Rate Blood Pressure O2 Sat by Pulse 98 99 99 Oximetry O2 Sat by Pulse Oximetry [ Throughout] 05/28/21 05/28/21 05/28/21 10:30 10:32 10:37 Temperature Pulse Rate 64 70 66 Respiratory Rate Blood Pressure 120/63 O2 Sat by Pulse 98 98 Oximetry O2 Sat by Pulse Oximetry [ Throughout] 05/28/21 05/28/2105/28/21 10:42 10:45 10:47 Temperature Pulse Rate 63 67 66 Respiratory Rate Blood Pressure 118/58 O2 Sat by Pulse 98 98 Oximetry O2 Sat by Pulse Oximetry [ Throughout] 05/28/21 05/28/21 05/28/21 10:52 10:57 10:59 Temperature Pulse Rate 66 65 61 Respiratory Rate Blood Pressure 116/58 O2 Sat by Pulse 98 98 Oximetry O2 Sat by Pulse Oximetry [ Throughout] 05/28/21 05/28/21 05/28/21 11:02 11:07 11:12 Temperature Pulse Rate 63 71 63 Respiratory Rate Blood Pressure O2 Sat by Pulse 97 95 97 Oximetry O2 Sat by Pulse Oximetry [ Throughout] 05/28/21 05/28/21 05/28/21 11:15 11:17 11:22 Temperature Pulse Rate 61 73 65 Respiratory Rate Blood Pressure 109/56 O2 Sat by Pulse 97 98 Oximetry O2 Sat by Pulse Oximetry [ Throughout] 05/28/21 05/28/21 05/28/21 11:27 11:29 11:32 Temperature Pulse Rate 64 64 65 Respiratory Rate Blood Pressure 120/60 O2 Sat by Pulse 99 98 Oximetry O2 Sat by Pulse Oximetry [ Throughout] 05/28/21 05/28/21 05/28/21 11:37 11:42 11:44 Temperature Pulse Rate 67 64 64 Respiratory Rate Blood Pressure 119/58 O2 Sat by Pulse 98 98 Oximetry O2 Sat by Pulse Oximetry [ Throughout] 05/28/21 05/28/21 05/28/21 11:47 11:52 11:57 Temperature Pulse Rate 65 66 70 Respiratory Rate Blood Pressure O2 Sat by Pulse 98 98 97 Oximetry O2 Sat by Pulse Oximetry [ Throughout] 05/28/21 05/28/21 05/28/21 11:59 12:02 12:07 Temperature Pulse Rate 70 67 64 Respiratory Rate Blood Pressure 124/66 O2 Sat by Pulse 98 97 Oximetry O2 Sat by Pulse Oximetry [ Throughout] 05/28/21 05/28/21 05/28/21 12:12 12:14 12:17 Temperature Pulse Rate 64 63 68 Respiratory Rate Blood Pressure 117/59 O2 Sat by Pulse 96 95 Oximetry O2 Sat by Pulse Oximetry [ Throughout] 05/28/21 05/28/21 05/28/21 12:22 12:27 12:30 Temperature Pulse Rate 72 80 74 Respiratory Rate Blood Pressure 139/69 O2 Sat by Pulse 97 96 Oximetry O2 Sat by Pulse Oximetry [ Throughout] 05/28/21 05/28/21 05/28/21 12:32 12:37 12:42 Temperature Pulse Rate 68 71 73 Respiratory Rate Blood Pressure O2 Sat by Pulse 96 97 99 Oximetry O2 Sat by Pulse Oximetry [ Throughout] 05/28/21 05/28/21 05/28/21 12:45 12:47 12:52 Temperature Pulse Rate 65 67 65 Respiratory Rate Blood Pressure 137/69 O2 Sat by Pulse 98 97 Oximetry O2 Sat by Pulse Oximetry [ Throughout] 05/28/21 05/28/21 05/28/21 12:57 13:00 13:02 Temperature Pulse Rate 64 64 70 Respiratory Rate Blood Pressure 130/66 O2 Sat by Pulse 97 95 Oximetry O2 Sat by Pulse Oximetry [ Throughout] 05/28/21 05/28/21 05/28/21 13:07 13:12 13:13 Temperature Pulse Rate 66 64 65 Respiratory Rate Blood Pressure O2 Sat by Pulse 97 96 94 Oximetry O2 Sat by Pulse Oximetry [ Throughout] 05/28/21 05/28/21 05/28/21 13:15 13:17 13:19 Temperature Pulse Rate 64 66 65 Respiratory Rate Blood Pressure 130/70 O2 Sat by Pulse 95 94 Oximetry O2 Sat by Pulse Oximetry [ Throughout] 05/28/21 05/28/21 05/28/21 13:22 13:26 13:27 Temperature Pulse Rate 64 65 Respiratory 18 Rate Blood Pressure O2 Sat by Pulse 97 96 Oximetry O2 Sat by Pulse Oximetry [ Throughout] 05/28/21 05/28/21 05/28/21 13:30 13:32 13:37 Temperature Pulse Rate 67 70 65 Respiratory Rate Blood Pressure 129/77 O2 Sat by Pulse 97 97 Oximetry O2 Sat by Pulse Oximetry [ Throughout] 05/28/21 05/28/21 05/28/21 13:42 13:45 13:47 Temperature Pulse Rate 64 63 68 Respiratory Rate Blood Pressure 124/67 O2 Sat by Pulse 97 96 Oximetry O2 Sat by Pulse Oximetry [ Throughout] 05/28/21 05/28/21 05/28/21 13:52 13:57 13:59 Temperature Pulse Rate 65 65 64 Respiratory Rate Blood Pressure 130/71 O2 Sat by Pulse 97 97 Oximetry O2 Sat by Pulse Oximetry [ Throughout] 05/28/21 05/28/21 05/28/21 14:02 14:07 14:12 Temperature Pulse Rate 66 69 64 Respiratory Rate Blood Pressure O2 Sat by Pulse 97 95 96 Oximetry O2 Sat by Pulse Oximetry [ Throughout] 05/28/21 05/28/21 05/28/21 14:15 14:17 14:22 Temperature Pulse Rate 63 63 68 Respiratory Rate Blood Pressure 125/72 O2 Sat by Pulse 97 96 Oximetry O2 Sat by Pulse Oximetry [ Throughout] 05/28/21 05/28/21 05/28/21 14:27 14:29 14:32 Temperature Pulse Rate 63 63 67 Respiratory Rate Blood Pressure 130/73 O2 Sat by Pulse 97 96 Oximetry O2 Sat by Pulse Oximetry [ Throughout] 05/28/21 05/28/21 05/28/21 14:37 14:42 14:46 Temperature Pulse Rate 63 63 77 Respiratory Rate Blood Pressure O2 Sat by Pulse 96 97 92 Oximetry O2 Sat by Pulse Oximetry [ Throughout] 05/28/21 05/28/21 05/28/21 14:47 14:52 14:54 Temperature Pulse Rate 83 65 89 Respiratory Rate Blood Pressure O2 Sat by Pulse 97 97 94 Oximetry O2 Sat by Pulse Oximetry [ Throughout] 05/28/21 05/28/21 05/28/21 14:57 15:02 15:07 Temperature Pulse Rate 66 71 64 Respiratory Rate Blood Pressure O2 Sat by Pulse 98 97 96 Oximetry O2 Sat by Pulse Oximetry [ Throughout] 05/28/21 05/28/21 05/28/21 15:12 15:15 15:17 Temperature Pulse Rate 63 62 69 Respiratory Rate Blood Pressure 109/57 O2 Sat by Pulse 96 97 Oximetry O2 Sat by Pulse Oximetry [ Throughout] 05/28/21 05/28/21 05/28/21 15:22 15:27 15:29 Temperature Pulse Rate 69 72 65 Respiratory Rate Blood Pressure 119/66 O2 Sat by Pulse 99 97 Oximetry O2 Sat by Pulse Oximetry [ Throughout] 05/28/21 05/28/21 05/28/21 15:32 15:37 15:42 Temperature Pulse Rate 77 66 67 Respiratory Rate Blood Pressure O2 Sat by Pulse 97 99 98 Oximetry O2 Sat by Pulse Oximetry [ Throughout] 05/28/21 05/28/21 05/28/21 15:44 15:47 15:52 Temperature Pulse Rate 65 68 68 Respiratory Rate Blood Pressure 120/65 O2 Sat by Pulse 99 97 Oximetry O2 Sat by Pulse Oximetry [ Throughout] 05/28/21 05/28/21 05/28/21 15:57 15:59 16:02 Temperature Pulse Rate 66 68 71 Respiratory Rate Blood Pressure 116/65 O2 Sat by Pulse 99 99 Oximetry O2 Sat by Pulse Oximetry [ Throughout] 05/28/21 05/28/21 05/28/21 16:07 16:12 16:14 Temperature Pulse Rate 68 67 67 Respiratory Rate Blood Pressure 126/67 O2 Sat by Pulse 97 99 Oximetry O2 Sat by Pulse Oximetry [ Throughout] 05/28/21 05/28/21 05/28/21 16:17 16:22 16:27 Temperature Pulse Rate 67 75 71 Respiratory Rate Blood Pressure O2 Sat by Pulse 100 100 98 Oximetry O2 Sat by Pulse Oximetry [ Throughout] 05/28/21 05/28/21 05/28/21 16:29 16:32 16:37 Temperature Pulse Rate 69 83 62 Respiratory Rate Blood Pressure 126/70 O2 Sat by Pulse 96 98 Oximetry O2 Sat by Pulse Oximetry [ Throughout] 05/28/21 05/28/21 05/28/21 16:42 16:44 16:47 Temperature Pulse Rate 65 65 66 Respiratory Rate Blood Pressure 131/67 O2 Sat by Pulse 98 99 Oximetry O2 Sat by Pulse Oximetry [ Throughout] 05/28/21 05/28/21 05/28/21 16:52 16:57 16:59 Temperature Pulse Rate 65 77 65 Respiratory Rate Blood Pressure 125/64 O2 Sat by Pulse 99 99 Oximetry O2 Sat by Pulse Oximetry [ Throughout] 05/28/21 05/28/21 05/28/21 17:02 17:07 17:12 Temperature Pulse Rate 65 65 64 Respiratory Rate Blood Pressure O2 Sat by Pulse 95 98 100 Oximetry O2 Sat by Pulse Oximetry [ Throughout] 05/28/21 05/28/21 05/28/21 17:14 17:17 17:22 Temperature Pulse Rate 64 66 82 Respiratory Rate Blood Pressure 130/66 O2 Sat by Pulse 98 99 Oximetry O2 Sat by Pulse Oximetry [ Throughout] 05/28/21 05/28/21 05/28/21 17:27 17:32 17:35 Temperature Pulse Rate 72 74 65 Respiratory Rate Blood Pressure O2 Sat by Pulse 100 98 84 Oximetry O2 Sat by Pulse Oximetry [ Throughout] 05/28/21 05/28/21 05/28/21 17:37 17:42 17:47 Temperature Pulse Rate 71 70 75 Respiratory Rate Blood Pressure O2 Sat by Pulse 98 99 99 Oximetry O2 Sat by Pulse Oximetry [ Throughout] 05/28/21 05/28/21 05/28/21 17:52 17:57 18:02 Temperature Pulse Rate 72 69 73 Respiratory Rate Blood Pressure O2 Sat by Pulse 100 100 99 Oximetry O2 Sat by Pulse Oximetry [ Throughout] 05/28/21 05/28/21 05/28/21 18:07 18:11 18:12 Temperature Pulse Rate 70 74 74 Respiratory Rate Blood Pressure O2 Sat by Pulse 100 93 98 Oximetry O2 Sat by Pulse Oximetry [ Throughout] 05/28/21 05/28/21 05/28/21 18:16 18:17 18:22 Temperature Pulse Rate 69 73 83 Respiratory Rate Blood Pressure O2 Sat by Pulse 92 90 94 Oximetry O2 Sat by Pulse Oximetry [ Throughout] 05/28/21 05/28/21 05/28/21 18:26 18:27 18:30 Temperature Pulse Rate 63 62 67 Respiratory Rate Blood Pressure 132/60 122/57 O2 Sat by Pulse 100 Oximetry O2 Sat by Pulse Oximetry [ Throughout] 05/28/21 05/28/21 05/28/21 18:32 18:37 18:42 Temperature Pulse Rate 69 62 85 Respiratory Rate Blood Pressure O2 Sat by Pulse 100 100 99 Oximetry O2 Sat by Pulse Oximetry [ Throughout] - Exam Breasts: deferred Abdomen: Present: normal appearance, soft Vulva: both: normal Uterus: Present: normal FHR: auscultation normal, category 2 Cervical Dilatation: 6 Cervical Effacement Percentage: 80 station: -2 Uterine Contraction Pattern: Regular Uterine Tone Measurement Phase: Resting Uterine Contraction Intensity: Moderate Extremities: normal - Labs Labs: Abnormal Labs 05/27/21 05/27/21 05/28/21 23:08 Unknown 09:04 RDW 19.1 H POC Glucose 123 H 108 H Laboratory Results - last 24 hr 05/27/21 05/27/21 05/28/21 17:14 23:08 09:04 POC Glucose 123 H 108 H Coronavirus (PCR) Antibody Screen Negative 05/28/21 05/28/21 05/28/21 09:05 09:25 15:28 POC Glucose 102 78 Coronavirus (PCR) Negative Antibody Screen
--- NOTE | 2021-05-28 19:20 | Event Note ---
Date: 05/28/21 SVE /-2. CAT I FHT. Will leave Pitocin off x 2 hrs then restart @ lower dose. Dr John agrees with plan.
[2021-05-29] MEDS ORDERED: BUPIVACAINE/PF (0.25%) 2.5 MG/ML 10 ML VIAL INFILTRATI ONE (00:49)
[2021-05-29] MEDS ORDERED: NalbUPHINE 10 MG/1 ML INJ IV PRN (00:56)
[2021-05-29] MEDS ORDERED: METHYLERGONOVINE MALEATE 0.2 MG/ML VIAL IM PRN (00:56)
[2021-05-29] MEDS ORDERED: LOPERAMIDE 2 MG CAP PO PRN (00:56)
[2021-05-29] MEDS ORDERED: fentaNYL 100 MCG/2 ML INJ IV PRN (00:56)
[2021-05-29] MEDS ORDERED: TERBUTALINE 1 MG/1 ML INJ SUB-Q PRN (00:56)
[2021-05-29] MEDS ORDERED: ePHEDrine SULFATE 50 MG/1 ML INJ IV PRN (00:56)
[2021-05-29] MEDS ORDERED: CARBOPROST TROMETHAMINE 250 MCG/1 ML INJ IM PRN (00:56)
[2021-05-29] MEDS ORDERED: MINERAL OIL 30 ML ORAL LIQD PO PRN (00:56)
[2021-05-29] MEDS ORDERED: OXYTOCIN 10 UNIT/1 ML INJ IM PRN (00:56)
[2021-05-29] MEDS ORDERED: miSOPROStol 200 MCG TAB PR PRN (00:56)
[2021-05-29] MEDS ORDERED: ACETAMINOPHEN 325 MG TAB PO PRN ×2 (00:56→09:00)
[2021-05-29] MEDS ORDERED: LACTATED RINGERS 1,000 ML IV SCH (01:00)
[2021-05-29] MEDS ORDERED: OXYTOCIN DRIP 30 UNITS/500 ML BAG IV SCH (01:00)
[2021-05-29 02:34] LABS: Hematocrit 30.9 % (30.3-42.9); Hemoglobin 10.1 gm/dl (10.1-14.3); Mean Corpuscular HGB Conc 33 % (30-34); Mean Corpuscular Volume 89 fl (79-97); Platelet Count 202 K/mm3 (140-440); Red Blood Count 3.49 M/mm3 (3.65-5.03); Red Cell Distribution Width 19.8 % (13.2-15.2)
--- NOTE | 2021-05-29 07:36 | Procedure Note ---
OB Delivery Note - Delivery Date of Delivery: 05/29/21 Surgeon: DEB PEREZ Estimated blood loss: <100cc - Vaginal Delivery presentation: vertex Delivery position: OA Intrapartum events: mult.variable deceleratio, other(please specify) (oligo, IDDM) Delivery induction: cervidil Delivery augmentation: rupture of membranes, pitocin Delivery monitor: external FHT, external uterine, internal FHT, internal uterine Route of delivery: Delivery placenta: spontaneous Delivery cord: 3 umbilical vessels Episiotomy: none Delivery laceration: none Anesthesia: epidural Delivery comments: of a viable male in OA position over an intact perineum. Spontaneous delivery of head and shoulders. Infant directly to mom's chest for skin to skin bonding. Delayed cord clamping while NICU nurse dried and stimulated baby. Cord was clamped x 2 and FOB was guided in cutting the cord. Infant was taken to infant warmer for an initial asses 8/9. Cord bllod was obtained. Spontaneous delivery of an intact placenta with 3cv. FF@ U2 with fundal massage and IV Pitocin. An exploration of tears revealed none. FW 2381 Gms. EBL < 100cc. Mom and baby was left in stable condition with nurses. Placenta was sent to the lab. - Infant A at 1 minute: 8 at 5 minutes: 9 Infant Gender: Male
[2021-05-29] MEDS ORDERED: WITCH HAZEL/ GLYCERIN PAD TP PRN (09:00)
[2021-05-29] MEDS ORDERED: diphenhydrAMINE 25 MG CAP PO PRN (09:00)
[2021-05-29] MEDS ORDERED: oxyCODONE /ACETAMINOPHEN 5-325MG TAB PO PRN (09:00)
[2021-05-29] MEDS ORDERED: ONDANSETRON 4 MG/2 ML INJ IV PRN (09:00)
[2021-05-29] MEDS ORDERED: PROMETHAZINE 25 MG TAB PO PRN (09:00)
[2021-05-29] MEDS ORDERED: PROMETHAZINE 25 MG RECT SUPP PR PRN (09:00)
[2021-05-29] MEDS ORDERED: LANOLIN/ZINC/DIMETHICONE (LANSINOH) 7 GM TP PRN (09:00)
[2021-05-29] MEDS ORDERED: PRENATAL VIT27-FE FUMARATE-FOLIC ACID VIT TAB PO SCH (10:00)
[2021-05-29] MEDS: IBUPROFEN 600 MG TAB PO SCH ×3 (11:06→20:38)
[2021-05-29] MEDS: INSULIN REGULAR, HUMAN 100 UNITS/1 ML SUB-Q SCH (16:26)
--- NOTE | 2021-05-29 17:39 | Post Anesthesia Evaluation ---
- Post Anesthesia Evaluation Patient Participated: Yes Airway Patent: Yes Stable Respiratory Function: Yes Nausea/Vomiting: No Temp > 96.8F: Yes Pain Manageable: Yes Adequeate Hydration: Yes Anesthesia Complications: No Block Receding Appropriately: Yes
[2021-05-29 19:04] LABS: Hematocrit 30.1 % (30.3-42.9); Hemoglobin 9.4 gm/dl (10.1-14.3)
[2021-05-29] MEDS ORDERED: MAGNESIUM HYDROXIDE (MOM) ORAL LIQD UDC PO PRN (22:00)
[2021-05-30] MEDS: IBUPROFEN 600 MG TAB PO SCH ×4 (03:29→18:12)
--- NOTE | 2021-05-30 05:47 | Progress Note ---
Assessment and Plan PPD#1 doing well 1. Routine care. Pt offered discharge and same declined All questions encouraged and answered Subjective Date of service: 05/30/21 Principal diagnosis: IUP@37.5 Interval history: Pt has no complaints. Pt is voiding without difficulty, denies pelvic pain, pt is breast feeding and vag bleeding less than a period Objective - Constitutional Vitals: Vital Signs - 12hr 05/29/21 05/29/21 05/30/21 19:12 20:38 01:22 Temperature 97.8 F Pulse Rate 87 Respiratory 20 Rate Blood Pressure 98/51 O2 Sat by Pulse 97 Oximetry O2 Sat by Pulse 99 99 Oximetry [ Throughout] General appearance: Present: no acute distress - Respiratory Respiratory effort: normal - Cardiovascular Rhythm: regular Extremities: No edema - Gastrointestinal General gastrointestinal: Present: non-tender - Genitourinary Female genitourinary: other (fundus firm, non-tender 2cm below the umbilicus) - Integumentary Integumentary: warm - Neurologic Neurologic: moves all extremities - Labs CBC & Chem 7: 05/29/21 18:37 Labs: Abnormal lab results 05/29/21 05/29/21 05/29/21 Range/Units 06:28 15:32 18:37 Hgb 9.4 L (10.1-14.3) gm/dl Hct 30.1 L (30.3-42.9) % POC Glucose 112 H 130 H (70-105) mg/dL 05/30/21 Range/Units 03:31 Hgb (10.1-14.3) gm/dl Hct (30.3-42.9) % POC Glucose 148 H (70-105) mg/dL Medications & Allergies - Medications Allergies/Adverse Reactions: Allergies No Known Allergies Allergy (Unverified 05/05/16 08:08) Home Medications: Home Medications Medication Instructions Recorded Confirmed Last Taken Type Aspirin 81 mg PO HS 05/27/21 05/27/21 05/26/21 History Iron 1 tab PO DAILY 05/27/21 05/27/21 05/26/21 History Vitamin 1 tab PO DAILY 05/27/21 05/27/21 05/26/21 History metFORMIN 1 tab PO HS 05/27/21 05/27/21 05/26/21 History Active Medications: Generic Name Dose Route Start Last Admin Trade Name Freq PRN Reason Stop Dose Admin Acetaminophen 650 mg 05/29/21 09:00 05/29/21 13:47 Acetaminophen 325 Mg Tab PO 650 mg Q4H PRN Administration Pain MILD(1-3)/Fever >100.5/HOLDER Bisacodyl 10 mg 05/29/21 10:00 Bisacodyl 10 Mg Rect Supp MO BID PRN Constipation Butorphanol Tartrate 2 mg 05/27/21 17:03 05/27/21 17:56 Butorphanol 2 Mg/1 Ml Inj IV 2 mg Q2H PRN Administration Pain , Severe (7-10) Carboprost Tromethamine 250 mcg 05/29/21 00:56 Carboprost Tromethamine 250 Mcg/1 Ml Inj IM ONCE PRN Uterine Bleeding Diphenhydramine HCl 25 mg 05/29/21 09:00 Diphenhydramine 25 Mg Cap PO Q6H PRN Itching Ephedrine Sulfate 10 mg 05/29/21 00:56 Ephedrine Sulfate 50 Mg/1 Ml Inj IV Q2M PRN Hypotension Fentanyl 100 mcg 05/29/21 00:56 Fentanyl 100 Mcg/2 Ml Inj IV Q2H PRN Pain,Severe (7-10) LABOR PAIN Oxytocin/Sodium Chloride 30 units in 500 mls @ 40 mls/hr 05/27/21 18:00 Pitocin/Ns 30 Unit/500ml IV TITR [facility] Protocol Fentanyl/Bupivacaine/Sodium Chlor 200 mcg in 100 mls @ 12 mls/hr 05/27/21 21:00 05/28/21 05:47 Fentanyl-Bupiv 2 Mcg/Ml-0.125% EPIDURAL 12 mls/hr TITR MARIANNA Administration Protocol Oxytocin/Sodium Chloride 30 units in 500 mls @ 2 mls/hr 05/29/21 01:00 Pitocin/Ns 30 Unit/500ml IV TITR [facility] Protocol Lactated Ringer's 1,000 mls @ 125 mls/hr 05/29/21 01:00 Lactated Ringers IV DIRECT MARIANNA Ibuprofen 600 mg 05/29/21 09:00 05/30/21 03:29 Ibuprofen 600 Mg Tab PO 600 mg Q6H MARIANNA Administration Insulin Human Regular 0 units 05/27/21 22:00 05/29/21 16:26 Insulin Regular, Human 100 Units/1 Ml SUB-Q Not Given ACHS MARIANNA Protocol Loperamide HCl 2 mg 05/29/21 00:56 Loperamide 2 Mg Cap PO ONCE PRN give with Hemabate Magnesium Hydroxide 30 ml 05/29/21 22:00 Magnesium Hydroxide (Mom) Oral Liqd Udc PO HS PRN Constipation Methylergonovine Maleate 0.2 mg 05/29/21 00:56 Methylergonovine Maleate 0.2 Mg/Ml Vial IM ONCE PRN Uterine Bleeding Mineral Oil 30 ml 05/29/21 00:56 Mineral Oil 30 Ml Oral Liqd PO QHS PRN Constipation Misoprostol 800 mcg 05/29/21 00:56 Misoprostol 200 Mcg Tab MO ONCE PRN Uterine Bleeding Multi-Ingredient Ointment 1 applic 05/29/21 09:00 Lanolin/Zinc/Dimethicone (Lansinoh) 7 Gm TP PRN PRN Sore Nipples Multivitamins/Iron/Calcium 1 each 05/29/21 10:00 [id number] Fumarate-Folic Acid Vit Tab PO QDAY MARIANNA Nalbuphine HCl 10 mg 05/29/21 00:56 Nalbuphine 10 Mg/1 Ml Inj IV Q2H PRN Pain, Moderate (4-6) Naloxone HCl 0.1 mg 05/27/21 17:03 Naloxone 0.4 Mg/1 Ml Inj IV Q2MIN PRN Res Rate </= 8 or 02 SAT < 92% Naloxone HCl 0.2 mg 05/27/21 20:46 Naloxone 2 Mg/2 Ml Inj IV Q5M PRN Respiratory sedation Ondansetron HCl 4 mg 05/29/21 09:00 Ondansetron 4 Mg/2 Ml Inj IV Q8H PRN Nausea And Vomiting Oxycodone/Acetaminophen 1 tab 05/29/21 09:00 Oxycodone /Acetaminophen 5-325mg Tab PO Q6H PRN Pain, Moderate (4-6) Oxytocin 10 unit 05/29/21 00:56 Oxytocin 10 Unit/1 Ml Inj IM ONCE PRN Uterine Bleeding Promethazine HCl 25 mg 05/29/21 09:00 Promethazine 25 Mg Rect Supp MO Q6H PRN Nausea And Vomiting Promethazine HCl 25 mg 05/29/21 09:00 Promethazine 25 Mg Tab PO Q6H PRN Nausea And Vomiting Sodium Chloride 10 ml 05/29/21 08:00 Sodium Chloride 0.9% 10 Ml Flush Syringe IV 06/09/21 07:59 PRN NR Terbutaline Sulfate 0.25 mg 05/29/21 00:56 Terbutaline 1 Mg/1 Ml Inj SUB-Q ONCE PRN Hyperstimulation/Hypertonicity Witch Alyssa/Glycerin 1 each 05/29/21 09:00 Witch Alyssa/ Glycerin Pad TP PRN PRN Hemorrhoid/cleansing/soothing
[2021-05-30] MEDS: INSULIN REGULAR, HUMAN 100 UNITS/1 ML SUB-Q SCH ×3 (08:20→16:33)
[2021-05-31] MEDS: INSULIN REGULAR, HUMAN 100 UNITS/1 ML SUB-Q SCH (01:25)
[2021-05-31] MEDS: IBUPROFEN 600 MG TAB PO SCH ×2 (01:27→06:03)
--- NOTE | 2021-05-31 03:59 | Discharge Summary ---
Providers - Providers Date of Admission: 05/28/21 19:00 Date of discharge: 05/31/21 Attending physician: DORIS BROOKS MD Primary care physician: DORIS BROOKS MD Hospitalization Delivery: Episiotomy: none Laceration: none Other procedures: none complications: none Discharge diagnosis: IUP at term delivered Condition at discharge: Stable Disposition: 01 HOME / SELF CARE / HOMELESS Plan - Provider Discharge Summary Activity: no sex for 6 weeks Diet: routine Instructions: routine Additional instructions: [] Smoking cessation referral if applicable(refer to patient education folder for contact #) [] Refer to [facility] Booklet Call your doctor immediately for: * Fever > 100.5 * Heavy vaginal bleeding ( >1 pad per hour) * Severe persistent headache * Shortness of breath * Reddened, hot, painful area to leg or breast * Drainage or odor from incision. * Keep incision clean and dry at all times and follow doctor's instructions regarding bathing/showering - Follow up plan Follow up: DORIS BROOKS MD [Primary Care Provider] - 6 Weeks
--- NOTE | 2021-05-31 15:21 | Event Note ---
Date: 05/31/21 Nurse states patient ready for discharge and discharge summary is in but needs discharge order. Order put in. Instructed patient to follow up with her PCP this week re: her pregestational diabetes.
[2021-05-31 17:08] VITALS: BP 158/75
== END 2021-05-31 16:45 | disposition home or self-care (01) | DRG 806 ==
LOC: TRG 15:58 → APU 15:59 → LD 16:08 → TRG 05-28 19:00 → OB 05-29 08:44
PROVIDERS: ADMIT Obstetrics & Gynecology; ATTEND Obstetrics & Gynecology
PROC: 10907ZC Drainage of Amniotic Fluid, Therapeutic from Products of Conception, Via Natural or Artificial Opening (ICD-10-PCS; principal; 2021-05-29)
PROC: 10E0XZZ Delivery of Products of Conception, External Approach (ICD-10-PCS; 2021-05-29)
PROC: 3E0R3BZ Introduction of Anesthetic Agent into Spinal Canal, Percutaneous Approach (ICD-10-PCS; 2021-05-29)
PROC: 00HU33Z Insertion of Infusion Device into Spinal Canal, Percutaneous Approach (ICD-10-PCS; 2021-05-29)
DX: O76 Abnormality in fetal heart rate and rhythm complicating labor and delivery (principal); O41.03X0 Oligohydramnios, third trimester, not applicable or unspecified; Z37.0 Single live birth; Z3A.37 37 weeks gestation of pregnancy; Z20.822 Contact with and (suspected) exposure to COVID-19; O99.214 Obesity complicating childbirth; O24.429 Gestational diabetes mellitus in childbirth, unspecified control
CPT/HCPCS: 36415; 59025; 76815; 82962; 85014; 85018; 85027; 86850; 86900; 86901; 88307; 96360; 96365; 96374; G0378; J3490; J0595; J2590; J7120; U0003